=== PATIENT | male | born 1940 | race Caucasian/White ===

== ENCOUNTER 2024-03-09 16:21 | Emergency (ER) | payer MEDICARE, OTHER, SELFPAY ==
--- NOTE | ~2024-03-09 | XR_ITS ---
EXAMINATION: XR ABDOMEN KUB CLINICAL INDICATION: Replaced PEG COMPARISON: None available. TECHNIQUE: AP view of the abdomen. FINDINGS: Contrast agent is noted in a percutaneous gastrostomy tube and within the gastric lumen is manifested by visualization of normal gastric rugal folds. No extraluminal contrast is identified. Scattered bowel gas is noted in nondistended small and large bowel segments. Visualized left lung base is grossly clear. XR/XR KUB IMPRESSION: Percutaneous gastrostomy tube terminating within the stomach. Electronically signed by: Jeremias Flores MD 03/09/2024 11:52 PM EDT
--- NOTE | 2024-03-09 16:26 | ED.GENADULT ---
HPI - General Adult General Chief complaint: General Medical Stated complaint: g tube problem Time Seen by Provider: 03/09/24 22:00 Source: family Mode of arrival: ambulatory History of Present Illness ED Provider: Dr. Romero HPI narrative: Patient with muscular dystrophy accidentally had his gtube pulled out Onset (ago): hour(s) Related Data Allergies Allergy/AdvReac Type Severity Reaction Status Date / Time paroxetine [From Paxil] Allergy Facial Verified 03/09/24 16:35 Swelling Review of Systems Review of Systems: Yes all other systems are reviewed and are negative Neurologic: Denies Sensory deficit (Neuro) [facility] Social History Social History Advance Directives: No Advance Directives Information Provided: Yes Physical Exam ED Vital Signs: Vital Signs - 24 hr 03/09/24 16:28 03/09/24 19:39 03/09/24 22:36 Temperature 96.4 F L 97.8 F 97.9 F Pulse Rate 52 48 L 52 Respiratory Rate 16 18 18 Blood Pressure 117/50 L 137/69 134/66 Pulse Oximetry 96 99 98 Oxygen Delivery Method Room Air Room Air Room Air BMI result Body Mass Index 18.2 Const Other: chronically ill, emaciated Orientation/consciousness: oriented to person Limitations: altered mental status and behavioral limitations HENMT Head: Yes normal to inspection Ears: external ears normal General nose exam: Normal external nose present Mouth: Normal oral and palatal mucosa present and oropharynx normal Throat: Yes posterior oropharynx normal Eyes General: appearance normal, both eyes and all related structures Neck Neck: Yes normal visual inspection Chest Chest palpation & inspection: normal inspection of the chest Resp Auscultation: clear to auscultation bilaterally Cardio Jugular venous distension: no JVD Rate: regular rate Rhythm: regular rhythm Heart sounds: S1 normal heart sound present and S2 normal heart sound present GI Other: peg site edematous Palpation (GI): Soft to palpation, nontender and No hepatosplenomegaly present Auscultation: normal bowel sounds General: Yes no CVA tenderness Back/Spine/Pelvis Back: no CVA tenderness Skin General skin exam: no rashes or lesions noted Neuro Other: contracted General: oriented to person Sensory Exam: No Sensory deficit (Neuro) Extrem Other: contracted Psych Appearance: grossly normal Course Course Course Narrative: COLIN, this is a rapid medical exam performed by Kevin Ge please refer to primary provider for complete H&P- 83-year-old male presents for evaluation of a G-tube displacement. The patient's noted that the patient appeared to be about to fall, so she grabbed him and accidentally pulled out his G-tube. The patient did not end up falling and has no complaints. The patient has dementia and is not able to answer questions. He will need a replacement of his G-tube. He has a history of muscular dystrophy which is the reason for his G-tube Reevaluation(s) Reevaluation #1: Procedure: with difficulty PEG placed, injected with contrast, in good position Time: 22:45 Medications Administered Discontinued Medications Generic Name Dose Route Start Last Admin Trade Name Freq PRN Reason Stop Dose Admin Diatrizoate Meglum/Diatrizoate Sod 30 ml 03/09/24 22:30 03/09/24 22:32 Diatrizoate Meglumine, Sodium 30 Ml Solution PO 03/09/24 22:31 30 ml ONCE ONE Administration Medical Decision Making Differential Diagnosis Differential Diagnoses: The differential diagnosis associated with the presentation includes (displaced Gtube) Independent Interpretation I performed an independent interpretation of an: Plain X-Ray (kub with contrast good position) Independent Historian Clinical information obtained from an independent historian. History obtained from or confirmed by: Spouse Chronic Conditions Patient?s care impacted by: Other (Muscular dystrophy) Discharge Plan Discharge Clinical Impression: S/P percutaneous endoscopic gastrostomy (PEG) tube placement, PEG tube malfunction Patient Disposition: Home, Self-Care Referrals: Physician,Unknown J [Primary Care Provider] - 1 week Print Language: Slovenian
[2024-03-09 16:28] VITALS: BP 117/50; PULSE 52; RESP 16; TEMP 35.8; O2SAT 96; BMI 18.2
[2024-03-09 19:39] VITALS: BP 137/69; PULSE 48; RESP 18; TEMP 36.6; O2SAT 99
[2024-03-09] MEDS: Diatrizoate Meglumine, Sodium 30 ML SOLUTION PO (22:32)
[2024-03-09 22:36] VITALS: BP 134/66; PULSE 52; RESP 18; TEMP 36.6; O2SAT 98
[2024-03-09 23:07] VITALS: BP 134/66; PULSE 52; RESP 18; TEMP 36.6; O2SAT 98
== END 2024-03-09 23:09 | disposition home or self-care (01) ==
PROVIDERS: Emergency Provider Emergency Medicine
DX: K94.23 Gastrostomy malfunction (principal); G71.00 Muscular dystrophy, unspecified
CPT/HCPCS: 43762; 74018; 99283; 99284